=== PATIENT | female | born 1955 | race Two or more races ===

== ENCOUNTER 2023-01-10 17:14 | Emergency (ER) | payer OTHER ==
[~2023-01-10] VITALS: Ht 160 cm; Wt 81.6 kg
[~2023-01-10 17:14] MED LIST: PEPCID40 MG PO; PHENERGAN25 MG PO
[2023-01-10] MEDS ORDERED: LOSARTAN POTASS50 MG PO (17:55)
[2023-01-10] MEDS ORDERED: HYDROCHLOROTH12.5 MG PO (17:55)
[2023-01-10] MEDS ORDERED: METOPROLOL SUCC25 MG PO (17:55)
== END 2023-01-10 21:18 | disposition home or self-care (01) ==
LOC: ER 17:14
DX: S79.812A Other specified injuries of left hip, initial encounter (principal); W18.30XA Fall on same level, unspecified, initial encounter; Y93.89 Activity, other specified; Y92.009 Unspecified place in unspecified non-institutional (private) residence as the place of occurrence of the external cause; Z91.018 Allergy to other foods

== ENCOUNTER → 2023-01-19 | Outpatient (CLI) | payer OTHER ==
[~2023-01-19] MED LIST changes: +HYDROCHLOROTH12.5 MG PO; +LOSARTAN POTASS50 MG PO; +METOPROLOL SUCC25 MG PO
== END | disposition home or self-care (01) ==
LOC: RAD 13:12
PROVIDERS: ATTEND Orthopaedic Surgery
DX: M25.552 Pain in left hip (principal); L89.329 Pressure ulcer of left buttock, unspecified stage